=== PATIENT | female | born 1950 | race Caucasian/White ===

== ENCOUNTER 2022-02-06 21:54 | Inpatient (IN) | payer MEDICARE ==
[~2022-02-06] VITALS: Ht 175.3 cm; Wt 78.0 kg
[2022-02-07 01:45] LABS: BASOPHILS ABSOLUTE AUTO 0.05 K/mm3 (0.00-0.23); BASOPHILS PERCENT AUTO 0 % (0-2); EOSINOPHILS ABSOLUTE AUTO 0.11 K/mm3 (0.00-0.68); EOSINOPHILS PERCENT AUTO 1 % (0-6); Hematocrit 34.4 % (33.0-51.0); Hemoglobin 10.6 g/dL (11.5-16.0); IMMATURE GRAN ABSOLUTE AUTO 0.09 K/mm3 (0.00-0.10); IMMATURE GRAN PERCENT AUTO 1 % (0-1); LYMPHOCYTES ABSOLUTE AUTO 0.99 K/mm3 (0.84-5.20); LYMPHOCYTES PERCENT AUTO 7 % (21-46); MONOCYTES PERCENT AUTO 4 % (4-13); Mean Corpuscular HGB 25.8 pg (26.0-34.0); Mean Corpuscular HGB Conc 30.8 g/dL (31.5-36.5); Mean Corpuscular Volume 84 fL (80-100); Mean Platelet Volume 9.2 fL (9.1-12.4); NEUTROPHILS ABSOLUTE AUTO 11.86 K/mm3 (1.96-9.15); NEUTROPHILS PERCENT AUTO 87 % (41-73); Platelet Count 226 K/mm3 (150-400); RDW Coefficient Variation 14.7 % (11.7-14.2); RDW Standard Deviation 45.5 fL (35.1-46.3); Red Blood Cell Count 4.11 M/mm3 (3.80-5.20)
[2022-02-07 01:48] LABS: Albumin, Blood 3.6 g/dL (3.4-5.0); Albumin/Globulin Ratio 1.2 (0.8-1.8); Bilirubin, Total 0.4 mg/dL (0.1-1.0); Bun/Creatinine Ratio 18.9 (12.0-20.0); Calcium, Blood 8.5 mg/dL (8.5-10.1); Creatinine, Blood 0.9 mg/dL (0.40-1.00); Globulin, Blood 3.1 g/dL (2.2-4.0); Total Protein, Blood 6.7 g/dL (6.4-8.2)
[2022-02-07] MEDS ORDERED: OMEP20ER PO (02:38)
[2022-02-07] MEDS ORDERED: Tambocor100 MG PO (02:40)
[2022-02-07] MEDS ORDERED: CARV25 (02:40)
[2022-02-07] MEDS ORDERED: ELIQUIS5 M2 PO (02:41)
[2022-02-07] MEDS ORDERED: ATOR40TA PO (02:41)
[2022-02-07 04:11] LABS: International Normalized Ratio 1.12; Prothrombin Time Results 11.7 Sec (9.7-11.5)
--- NOTE | 2022-02-07 05:09 | NUR ---
SUMMARY PT ARRIVED TO FLOOR IN SOME DISCOMFORT. PT TX PER EMAR WITH RELIEF. PT CURRENTLY IN NO DISTRESS AND RESTING COMFORTABLY. CALL LIGHT IN REACH.
--- NOTE | 2022-02-07 09:30 | NUR ---
CALLED DR DUNLAP REGARDING PATIENTS PAIN MEDICATION. REQUESTED INCREASE IN PAIN MEDICATION D/T PATIENT STILL REPORTING EXTREME PAIN WELL BEFORE MEDICATIONIS DUE. GAVE ORDER TO INCREASE TO 50MCG OF [place]. ALSO INQUIRED ABOUT STARTING IV FLUIDS FOR PATIENT SINCE SHE IS NPO FOR SURGERY LATER TODAY. NO ORDERS FOR FLUIDS AT THIS TIME.
[2022-02-07 10:41] LABS: Source, Urine Foley catheter
[2022-02-07 10:52] LABS: Appearance, Urine Clear (Clear); Bilirubin, Urine Neg (Neg); Blood, Urine 2+ (Neg); Color, Urine Yellow (P-Yellow); Glucose Qualitative, Urine Neg (Neg); Ketones, Urine 3+ (Neg); Leukocyte Esterase, Urine Neg (Neg); Nitrite, Urine Neg (Neg); Protein, Urine 2+ (Neg); Urobilinogen, Urine NORM (Normal)
[2022-02-07 11:07] LABS: Bacteria Not Seen /hpf; Squamous Epithelial Cells Rare /hpf (Few); White Blood Cells, Urine Not Seen /hpf (0-5)
[2022-02-07 11:28] LABS: Influenza A, PCR NEGATIVE (NEGATIVE); Influenza B, PCR NEGATIVE (NEGATIVE); Resp Syncytial Virus, PCR NEGATIVE (NEGATIVE); SARS-Cov-2 (COVID-19) PCR, MMC NEGATIVE (NEGATIVE)
--- NOTE | 2022-02-07 13:18 | NUR ---
PATIENT TO DS ON HER BED.
--- NOTE | 2022-02-07 16:07 | NUR ---
PATIENT RETURNED TO ROOM FROM PACU. X1 AQUACEL TO R HIP, C/D/I. WIGGLES ALL TOES, HAS FULL SENSATION TO LOWER EXTREMETIES. CUELLAR IN PLACE. DENIES PAIN AT THIS TIME. TOLERATING PO INTAKE. CALL LIGHT IN REACH.
--- NOTE | 2022-02-07 18:21 | NUR ---
SHIFT SUMMARY POD 0 GAMMA NAILING TO L HIP. X1 AQUACEL IN PLACE, C/D/I. PATIENT RETURNED FROM SURGERY ABOUT 1600, HAS NOT BEEN OUT OF BED YET. MEDICATED X1 W/ PERCOCET. PATIENT HAS CUELLAR IN PLACE D/T RETENTION BEFORE SURGERY. EDUCATED PATIENT THAT WE WILL REMOVE ONCE SHE CAN AMBULATE LATER TODAY. WBAT. TOLERATING PO INTAKE. WILL REPORT TO ONCOMING RN.
--- NOTE | 2022-02-08 07:50 | NUR ---
SHIFT SUMMARY POD1 R HIP GAMMA NAIL WITH AQUACEL DRESSING REMAIN CDI. PT GOT UP AND DOWN ON SIDE OF BED FOR 20 MINS LAST NIGHT. TOLEARTED IT WELL. CUELLAR IN PLACED AND DC'D THIS MORNING WITH 850MLS URINE OUTPUT. PT REPORTS PAIN TO BE MINIMAL AT REST AND MODERATE WITH MOVEMENT. PAIN MANAGED WITH PERCOCET 2 TAB. TOLERATES PO INTAKE DENIES N/V. DENIES N/T. FULL WT BEARING, AND WILL WORK WITH PT TODAY. CALL LIGHT WITHIN REACH. REPORT GIVEN TO DAY FIT NURSE.
[2022-02-08 08:26] LABS: Hematocrit 32.4 % (33.0-51.0); Hemoglobin 9.9 g/dL (11.5-16.0); Mean Corpuscular HGB 25.7 pg (26.0-34.0); Mean Corpuscular HGB Conc 30.6 g/dL (31.5-36.5); Mean Corpuscular Volume 84 fL (80-100); Mean Platelet Volume 9.1 fL (9.1-12.4); Platelet Count 264 K/mm3 (150-400); RDW Coefficient Variation 14.7 % (11.7-14.2); RDW Standard Deviation 44.9 fL (35.1-46.3); Red Blood Cell Count 3.85 M/mm3 (3.80-5.20); White Blood Cell Count 12.61 K/mm3 (4.00-11.30)
[2022-02-08 09:09] LABS: Albumin, Blood 3.4 g/dL (3.4-5.0); Anion Gap 8 mmol/L (6-16); Blood Urea Nitrogen 13 mg/dL (8-24); CO2, Blood 25 mmol/L (21-32); Calcium, Blood 8.6 mg/dL (8.5-10.1); Chloride, Blood 104 mmol/L (98-108); Creatinine, Blood 0.81 mg/dL (0.40-1.00); Glomerular Filtration Rate 78 (60-); Glucose, Blood 147 mg/dL (70-99); Phosphorus, Blood 3.4 mg/dL (2.5-4.9); Potassium, Blood 4.4 mmol/L (3.5-5.5); Sodium, Blood 137 mmol/L (136-145)
--- NOTE | 2022-02-08 17:44 | NUR ---
SHIFT SUMMARY: POD1 RT HIP GAMMA PINNING. A&Ox4. VSS. VOIDING. AMBULATING W/ OPA, GB & SBA. TOLERATING PO INTAKE AND FLUIDS. PAIN MANAGED PRN PER EMR. INCISION RT ANTERIOR HIP W/ AQUACEL IN PLACE; C/D/I. TELE IN PLACE; SINUS/64bpm. WORKED W/ PT & OT TODAY AND HOPING TO BE DC'D TOMORROW OR NEXT DAY. REPORT TO ONCOMING PLATE PUT IN WORKER NURSE.
--- NOTE | 2022-02-08 18:01 | NUR ---
REVIEWED SN DOCUMENTATION
--- NOTE | 2022-02-09 03:34 | NUR ---
SHIFT SUMMARY POD2 R HIP GAMMA NAILING AFTER A GLF WITH FX R HIP. NO ACUTE CHANGES OVERNIGHT. PT SLEPT GOOD, PAIN ON R HIP, MANAGED WITH 2 TAB OF PERCOCET. AMBULATES IN THE BSC TO VOID. VOIDING ADEQUATELY. AOX4. VSS. TOLERATING PO INTAKE. SCD'S IN PLACED. CALL LIGHT WITHIN REACH. WILL PROVIDE REPORT TO ONCOMING NURSE.
--- NOTE | 2022-02-09 11:31 | NUR ---
dr beckham in to see pt.
--- NOTE | 2022-02-09 15:32 | NUR ---
ORTHO GAVE PERMISSION TO RESTRAT ELIQUIS. GAVE DOSE PER DR DUNLAP'S ORDER.
--- NOTE | 2022-02-09 17:42 | NUR ---
SUMMARY NO ACUTE CHANGES T/O SHIFT. PT TEARFUL PERIODICALLY T/O DAY DUE TO FRUSTRATION W/PROGRESS. ENCOURAGED PT TO CONTINUE TO WORK W/THERAPY, WHICH PT WAS COMPLIANT WITH. PT RESTARTED ON ELIQUIS PER ORDERS TODAY. MEDICATED T/O DAY FOR PAIN. PT REPORTS ICE HELPING WITH PAIN. HAS SAT UP IN CHAIR MOST OF SHIFT. CALL LIGHT IN REACH.
--- NOTE | 2022-02-09 19:10 | NUR ---
report given to oncoming shift.
--- NOTE | 2022-02-10 04:48 | NUR ---
SHIFT SUMMARY A/O X4. POD3 R GAMMA NAILING. AQUACEL IN PLACE, SCANT AMOUNT OF DRIED DRAINAGE. PAIN TREATED W/ PO PAIN MEDICATIONS. VITAL SIGNS STABLE. AMBULATING W/ SBA AND FWW&GB. VOIDING WELL. PT REPORTS FEELING BETTER ABOUT GOING HOME TODAY. BOWEL MOVEMENT THIS SHIFT. TOLERATING PO INTAKE. WILL CONTINUE TO MONITOR AND REPORT TO ONCOMING RN.
[2022-02-10] MEDS ORDERED: Percocet 5-3251 EACH PO (11:43)
[2022-02-10] MEDS ORDERED: DOCU100 PO (11:43)
[2022-02-10] MEDS ORDERED: MIRALAX17 GM PO (11:43)
--- NOTE | 2022-02-10 14:26 | NUR ---
DISCHARGE NOTE: PATIENT WAS EDUCATED ON DISCHARGE INSTRUCTIONS. SHE VERBALIZED UNDERSTANDING OF INSTRUCTIONS. HARD PERSCRIPTIONS ARE IN HER INSTRUCTIONS FOLDER. IVS WERE TAKEN OUT AND WNL. HER RIGHT HIP HAS AN AQUACEL THAT IS C/D/I. DENIES NUMBNESS AND TINGLING. CAN MOVE FINGERS AND TOES. SHE IS A SBA WITH FWW AND GAIT BELT. SHE IS TOLERATING PO INTAKE AND VOIDING. PATIENT IS DRESSED AND HAS ITEMS IN THE ROOM GATHERED. PAIN IS MANAGED WITH PO PAIN MEDICATIONS. PATIENT WAS WHEELCHAIRED DOWN TO HER FAMILY MEMBERS CAR TO BE TAKEN HOME.
== END 2022-02-10 14:21 | disposition home or self-care (01) | DRG 482 ==
LOC: ER 21:54 → MEDS 02-07 02:00 → SURS 02-07 02:00
PROVIDERS: Internal Medicine; Orthopaedic Surgery; Student in an Organized Health Care Education/Training Program; ADMIT Internal Medicine
PROC: 0QS636Z Reposition Right Upper Femur with Intramedullary Internal Fixation Device, Percutaneous Approach (ICD-10-PCS; principal; 2022-02-07 14:00)
DX: S72.141A Displaced intertrochanteric fracture of right femur, initial encounter for closed fracture (principal); I48.0 Paroxysmal atrial fibrillation; I10 Essential (primary) hypertension; K63.5 Polyp of colon; W18.30XA Fall on same level, unspecified, initial encounter; E78.5 Hyperlipidemia, unspecified; Z20.822 Contact with and (suspected) exposure to COVID-19; K27.9 Peptic ulcer, site unspecified, unspecified as acute or chronic, without hemorrhage or perforation; Z87.891 Personal history of nicotine dependence; Z79.01 Long term (current) use of anticoagulants; Z98.890 Other specified postprocedural states; Z87.19 Personal history of other diseases of the digestive system; Z98.84 Bariatric surgery status; Z79.899 Other long term (current) drug therapy
CPT/HCPCS: 0241U; 12001; 36415; 70450; 73502; 80053; 80069; 81001; 85025; 85027; 85610; 86850; 86900; 86901; 93005; 93010; 96374-59; 96375-59; 97110; 97116; 97161; 97530; 99285-25; A9270; C1713; J1100; J1170; J2370; J2405; J2704; J3010

== ENCOUNTER → 2023-02-25 | Outpatient (CLI) | payer MEDICARE ==
[~2023-02-25] MED LIST: ATOR40TA PO; CARV25; DOCU100 PO; ELIQUIS5 M2 PO; MIRALAX17 GM PO; OMEP20ER PO; Percocet 5-3251 EACH PO; Tambocor100 MG PO
[2023-02-25 20:09] LABS: Bun/Creatinine Ratio 22.3 (12.0-20.0); Calcium, Blood 9.6 mg/dL (8.5-10.1); Creatinine, Blood 0.81 mg/dL (0.40-1.00); Potassium, Blood 4.4 mmol/L (3.5-5.5)
== END | disposition home or self-care (01) ==
LOC: LAB 18:30 → LAB SHORT 18:30
PROVIDERS: Family Medicine
DX: E83.51 Hypocalcemia (principal)
CPT/HCPCS: 80048

== ENCOUNTER → 2023-05-12 | Outpatient (CLI) | payer MEDICARE ==
[2023-05-12 19:30] LABS: Hematocrit 36.9 % (33.0-51.0); Hemoglobin 11.5 g/dL (11.5-16.0)
== END | disposition home or self-care (01) ==
LOC: LAB SHORT 10:15 → LAB 10:15
PROVIDERS: Family Medicine
DX: D64.9 Anemia, unspecified (principal)
CPT/HCPCS: 85014; 85018

== ENCOUNTER → 2023-07-21 | Outpatient (CLI) | payer MEDICARE ==
[2023-07-21 19:28] LABS: BASOPHILS ABSOLUTE AUTO 0.09 K/mm3 (0.00-0.23); BASOPHILS PERCENT AUTO 1 % (0-2); EOSINOPHILS ABSOLUTE AUTO 0.49 K/mm3 (0.00-0.68); EOSINOPHILS PERCENT AUTO 6 % (0-6); Hematocrit 33.9 % (33.0-51.0); Hemoglobin 10.7 g/dL (11.5-16.0); IMMATURE GRAN ABSOLUTE AUTO 0.03 K/mm3 (0.00-0.10); IMMATURE GRAN PERCENT AUTO 0 % (0-1); LYMPHOCYTES ABSOLUTE AUTO 1.27 K/mm3 (0.84-5.20); LYMPHOCYTES PERCENT AUTO 15 % (21-46); MONOCYTES ABSOLUTE AUTO 0.61 K/mm3 (0.16-1.47); MONOCYTES PERCENT AUTO 7 % (4-13); Mean Corpuscular HGB 27.6 pg (26.0-34.0); Mean Corpuscular HGB Conc 31.6 g/dL (31.5-36.5); Mean Corpuscular Volume 88 fL (80-100); Mean Platelet Volume 9.5 fL (9.1-12.4); NEUTROPHILS ABSOLUTE AUTO 6.07 K/mm3 (1.96-9.15); NEUTROPHILS PERCENT AUTO 71 % (41-73); Platelet Count 300 K/mm3 (150-400); RDW Coefficient Variation 16.1 % (11.7-14.2); Red Blood Cell Count 3.87 M/mm3 (3.80-5.20); White Blood Cell Count 8.56 K/mm3 (4.00-11.30)
[2023-07-21 22:28] LABS: Percent Saturation 11.9 % (15.0-50.0)
== END ==
LOC: LAB SHORT 11:15 → LAB 11:15
PROVIDERS: Family Medicine
DX: D50.9 Iron deficiency anemia, unspecified (principal)
CPT/HCPCS: 82728; 83540; 83550; 85025

== ENCOUNTER → 2023-08-16 | Outpatient (CLI) | payer MEDICARE ==
[2023-08-16 19:51] LABS: Hematocrit 30.8 % (33.0-51.0); Hemoglobin 9.1 g/dL (11.5-16.0)
[2023-08-16 21:04] LABS: Bun/Creatinine Ratio 16.3 (12.0-20.0); Calcium, Blood 8.9 mg/dL (8.5-10.1); Creatinine, Blood 0.8 mg/dL (0.40-1.00); Percent Saturation 6.8 % (15.0-50.0); Potassium, Blood 4.2 mmol/L (3.5-5.5)
== END | disposition home or self-care (01) ==
LOC: LAB 14:15 → LAB SHORT 14:15
PROVIDERS: Family Medicine
DX: M81.0 Age-related osteoporosis without current pathological fracture (principal); D50.9 Iron deficiency anemia, unspecified
CPT/HCPCS: 80048; 82306; 82728; 83540; 83550; 85014; 85018